=== PATIENT | female | born 1940 | race Caucasian/White ===

== ENCOUNTER 2018-08-19 10:44 | Inpatient (IN) | payer OTHER | END 2018-08-21 19:58 | disposition home or self-care (01) | LOC: ER 10:44 → TELE-WESTW 08-20 09:27 → TELE 17:47 → TELE-CENTR 23:05 | DX: F03.90 Unspecified dementia, unspecified severity, without behavioral disturbance, psychotic disturbance, mood disturbance, and anxiety (principal); E44.1 Mild protein-calorie malnutrition; G40.909 Epilepsy, unspecified, not intractable, without status epilepticus ==